=== PATIENT | male | born 1960 | race Caucasian/White ===

== ENCOUNTER 2024-09-03 08:39 | Outpatient (CLI) | payer MEDICARE, SELFPAY ==
[2024-09-03 08:56] LABS: Hematocrit 45.6 % (42.0-52.0); Hemoglobin 15.8 g/dL (14.0-18.0); Mean Corpuscular HGB Conc 34.6 g/dl (32-36); Mean Corpuscular Volume 89.6 fl (80-100); Mean Platelet Volume 10.2 fl (7.4-10.4); Platelet Count Result 223 k/mm3 (150-375); Red Blood Count 5.09 M/mm3 (4.6-6.20); Red Cell Distribution Width 12.7 % (11.5-14.5); White Blood Count 4.7 K/mm3 (4.5-10.0)
[2024-09-03 09:18] LABS: Alanine Aminotransferase 35 U/L (6-50); Albumin Level 4.5 g/dL (3.5-5.1); Alkaline Phosphatase 60 U/L (38-126); Anion Gap 5 mmol/L (4-12); Aspartate Amino Transferase 42 U/L (17-59); Bilirubin,Total 0.7 mg/dL (0.2-1.3); Blood Urea Nitrogen 24 mg/dL (9-20); Calcium 9.8 mg/dL (8.4-10.2); Carbon Dioxide 29 mmol/L (22-30); Chloride 104 mmol/L (98-107); Cholesterol 275 mg/dL (0-200); Estimated Glomerular Filt Rate > 60; Glucose 108 mg/dL (65-110); HDL Direct 49 mg/dL; Potassium 4.4 mmol/L (3.4-5.0); Sodium 138 mmol/L (137-145); Triglycerides 126 mg/dL (<150)
[2024-09-03 09:29] LABS: LDL Cholesterol Direct 172 mg/dL
[2024-09-03 09:49] LABS: Prostate Specific Antigen 0.9 ng/mL (< OR = 4.0)
== END 2024-09-03 08:40 | disposition home or self-care (01) ==
DX: E78.5 Hyperlipidemia, unspecified (principal); Z12.5 Encounter for screening for malignant neoplasm of prostate; I10 Essential (primary) hypertension
CPT/HCPCS: 36415; 80053; 80061; 84153; 85027; G0103

== ENCOUNTER 2024-09-07 12:26 | Outpatient (CLI) | payer MEDICARE, OTHER, SELFPAY ==
--- NOTE | ~2024-09-07 | XR_ITS ---
EXAM: XR knee LT 3V DATE: 09/07/2024 15:03 HISTORY: Pain in left knee - CHRONIC HX OF TWISTING INJURY . COMPARISON: None available. FINDINGS: Normal mineralization. No fracture or dislocation. No lytic or blastic lesion. Moderate me dial compartment narrowing. Chondrocalcinosis. Mild tricompartmental osteophytosis. Quadriceps enthes opathy. Small volume joint fluid. No erosion or periosteal change. Soft tissues within normal limits. IMPRESSION: Tricompartmental left knee arthritis with chondrocalcinosis, moderate in the medial roxanna rtment. Small left knee joint effusion. Reviewed, dictated and finalized at location [facility]. [facility] IMPRESSION: Tricompartmental left knee arthritis with chondrocalcinosis, modera te in the medial compartment. Small left knee joint effusion.
== END 2024-09-07 12:27 | disposition home or self-care (01) ==
DX: M17.12 Unilateral primary osteoarthritis, left knee (principal); M25.462 Effusion, left knee
CPT/HCPCS: 73562

== ENCOUNTER 2025-05-27 13:30 | Outpatient (RCR) | payer MEDICARE, OTHER, SELFPAY ==
--- NOTE | 2025-04-19 16:28 | OPREHPOC ---
Outpatient Therapy Plan of Care This is a Multidisciplinary Plan of Care that may contain components documented by all disciplines (PT, OT, and ST.) PT Problem 1 PT Problem #1 Knowledge Deficit PT Goal 1 Goal / Goal Update 1*independent with HEP 2* demonstrate correct lifting from the floor Target Visit 8 PT Problem 2 PT Problem #2 Pain PT Goal 1 Goal / Goal Update 1* pt report pain at worst of 3/10 2* radicular pain to L knee at worst 3* pain into L LE is intermittent Target Visit 8 PT Problem 3 PT Problem #3 Impaired Flexibility PT Goal 1 Goal / Goal Update improve flexibility of L hip 1* anterior hip-quad with prone knee flexion 125' 2* supine SLR to 60' with out pain 3*supine hip flexion with out pain Target Visit 8 PT Problem 4 PT Problem #4 Impaired Strength PT Goal 1 Goal / Goal Update increase trunk strength to improve stability to spine 1* single leg standing R and L x 30 seconds with good stability 2* gross strength of trunk/abdominals of 4+/5 Target Visit 8
--- NOTE | 2025-04-19 16:28 | PTOPEVAL1 ---
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 Onset of pain after lifting. Pain has decreased since onset. Radicular pain into L LE, medial LE to mid roberson and is constant. 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 Back Index rating of 32% limitation in activity level. Xray report states moderate to severe degenerative disc disease over L 4-5-S1. History includes R ankle fracture and continues to have pain. With the evaluation: pain is increased with standing trunk flexion and extension motions, supine L hip flexion and IR motion and L SLR; posture of flat lumbar spine and slight forward rotation of R shoulder and trunk; has good hip and LE strength, with slight weakness on R single leg standing and with ankle pain. Skilled PT services are indicated for modalities to decrease pain, therapeutic exercises to increase L hip flexibility and trunk strength with education for HEP, pain management and posture/ body mechanics. Plan of Care Interventions Electrical Stimulation,Hot Pack/Cold Pack,Manual Therapy,Mechanical Traction,Neuro Re-education, Patient/Caregiver Education,Therapeutic Activities ,Therapeutic Exercise,Ultrasound,Other Other Interventions taping PT Services Indicated Yes Treatment Frequency and 1-2x/wk for 8 visits Duration These treatments will address the objective and functional deficits as defined above. The patient will be advanced safely and appropriately in order for the patient to progress towards his/her prior level of function. Additional exercises will be introduced and as well as a comprehensive home exercise program upon discharge, if needed, ?to ensure carryover of functional gains achieved in the clinic. This treatment plan has been reviewed and agreement upon by the patient.
--- NOTE | 2025-05-27 14:13 | OPREHPOC ---
Outpatient Therapy Plan of Care This is a Multidisciplinary Plan of Care that may contain components documented by all disciplines (PT, OT, and ST.) PT Problem 1 PT Problem #1 Knowledge Deficit PT Goal 1 Goal / Goal Update 1*independent with HEP 2* demonstrate correct lifting from the floor 05-27-25 d/c goals met Target Visit 8 Progress Met PT Problem 2 PT Problem #2 Pain PT Goal 1 Goal / Goal Update 1* pt report pain at worst of 3/10 2* radicular pain to L knee at worst 3* pain into L LE is intermittent 05-27-25 d/c goals met Target Visit 8 Progress Met PT Problem 3 PT Problem #3 Impaired Flexibility PT Goal 1 Goal / Goal Update improve flexibility of L hip 1* anterior hip-quad with prone knee flexion 125' 2* supine SLR to 60' with out pain 3*supine hip flexion with out pain 05-27-25 d/c goals met Target Visit 8 Progress Met PT Problem 4 PT Problem #4 Impaired Strength PT Goal 1 Goal / Goal Update increase trunk strength to improve stability to spine 1* single leg standing R and L x 30 seconds with good stability 2* gross strength of trunk/abdominals of 4+/5 05-27-25 d/c goal 2 met & #1 partially met for L LE at 30/ R 12 seconds Target Visit 8 Progress Partially Met
--- NOTE | 2025-05-27 14:13 | PTOPDC ---
Assessment and note entered by Meche Culver, PT Assessment Status Discharge ICD-10 Condition Codes (PT) Radiculopathy, lumbar region M54.16 Onset January 2025 Subjective Information doing a lot better, very little pain and know how to lift correctly now; doing all the exercises at home; Reported Pain Level Pain Score Self Report Additional Pain Score Comments pain range in the past week 0-3/10; no radicular pain into L LE increase pain: working outside on deck, over doing it decrease pain: rest, sit, ice, advil PRN no issues with walking, sleeping; Assessment PT Clinical Summary Raj has received 8 PT sessions. He has improved in all areas: pain rating of 0-3/ 10; no radicular pain into L LE; self assessment with back index rating of 12% limitation in activity level; increase strength of trunk and hips; increase flexibility of hamstrings, piriformis and anterior hip-quad muscle groups; no pain with L hip motions; correct body mechanics and posture with lifting from the floor. Education completed for HEP, pain management and posture. The goals were met, except single leg standing on R due to R ankle pain/previous injury. Discharge PT. Plan of Care PT Services Indicated No
== END 2025-05-31 09:26 | disposition home or self-care (01) ==
LOC: ANHPT 13:30
DX: M54.16 Radiculopathy, lumbar region (principal)
CPT/HCPCS: 97110; 97140; 97161; 97530

== ENCOUNTER 2025-09-08 10:26 | Outpatient (CLI) | payer MEDICARE, OTHER, SELFPAY ==
[2025-09-08 10:57] LABS: Alanine Aminotransferase 26 U/L (6-50); Albumin Level 4.2 g/dL (3.5-5.1); Alkaline Phosphatase 61 U/L (38-126); Anion Gap 2 mmol/L (4-12); Aspartate Amino Transferase 91 U/L (17-59); Bilirubin,Total 0.9 mg/dL (0.2-1.3); Blood Urea Nitrogen 22 mg/dL (9-20); Calcium 9.2 mg/dL (8.4-10.2); Carbon Dioxide 28 mmol/L (22-30); Chloride 105 mmol/L (98-107); Cholesterol 281 mg/dL (0-200); Estimated Glomerular Filt Rate > 60; Glucose 105 mg/dL (65-110); HDL Direct 49 mg/dL; Potassium 4.5 mmol/L (3.4-5.0); Sodium 135 mmol/L (137-145); Total Protein 7.3 g/dL (6.3-8.2); Triglycerides 108 mg/dL (<150)
[2025-09-08 11:33] LABS: Prostate Specific Antigen 0.9 ng/mL (< OR = 4.0)
[2025-09-09 05:09] LABS: Hep B Core Ab, Total Negative (Negative)
== END 2025-09-08 10:27 | disposition home or self-care (01) ==
PROVIDERS: PCP Family Medicine; Visit Provider Family Medicine
DX: E78.2 Mixed hyperlipidemia (principal); Z11.59 Encounter for screening for other viral diseases; I10 Essential (primary) hypertension; Z12.5 Encounter for screening for malignant neoplasm of prostate
CPT/HCPCS: 36415; 80053; 80061; 84153; 86704; G0103